=== PATIENT | female | born 1995 | race Caucasian/White ===

== ENCOUNTER 2020-12-07 18:55 | Inpatient (IN) ==
[2020-12-07] MEDS ORDERED: BENZOCAINE/MENTHOL 81 SPRAY CAN TP PRN (21:41)
[2020-12-07] MEDS ORDERED: HYDROcodone/ACETAMINOPHEN 1 EACH TABLET PO PRN (21:41)
[2020-12-07] MEDS ORDERED: IBUPROFEN 800 MG TABLET PO PRN (21:41)
[2020-12-07] MEDS ORDERED: GLYCERIN/WITCH HAZEL LEAF 40 APPL BOX TP PRN (21:42)
--- NOTE | 2020-12-08 07:07 | HP ---
Chief Complaint - Chief Complaint Date of Service: 12/08/20 Time of Service: 07:05 Chief Complaint: Delivered at [facility] History of Present Illness: 25 year old at 37w 2d who presented to [facility] complete and delivered there. Placenta delivered there as well. Delivery was uncomplicated per report and there were no lacerations. Medical History (Last Reviewed 12/08/20 @ 07:06 by Annie Rockwell MD) Anemia affecting (Acute) Onset Date: 10/07/20 History of back problems Migraine headache without aura took codeine in the past ADHD (attention deficit hyperactivity disorder) Anxiety Depression Vertigo Surgical History: Surgical History (Last Reviewed 12/08/20 @ 07:06 by Annie Rockwell MD) History of tonsillectomy History of tympanoplasty History of wisdom tooth extraction Family History: Family History (Last Reviewed 12/08/20 @ 07:06 by Annie Rockwell MD) Mother Hypertension Heart disease Grandmother Cancer Father Alcoholic Social History: (Last Reviewed 12/08/20 @ 07:06 by Annie Rockwell MD) Social History: adopted: No Marital status: Single household members: significant other current occupational status: unemployed current occupational exposures/hazards: No Highest level of school completed/degree received: 11th grade Service: No Tobacco: Smoking Status: Current every day smoker tobacco type: cigarettes Smoking cigarettes per day: 10 Years smoked: 7 Smoking pack-years: 3.50 Alcohol: alcohol intake: current details: wine occasionally, 2-3 shots a few times a week to chill out Substance Use: substance use type: former substance user details: last used middle April 2020 Dietary Habits: caffeine: No Review Of Systems (GEN) - Review of Systems Generalized/Overall Review: Present: No Symptoms Reported Misc: All systems neg except as marked Allergies/Adverse Reactions: Allergies Allergy/AdvReac Type Severity Reaction Status Date / Time No Known Allergies Allergy Verified 10/07/20 13:35 Home Medications: HOME MEDICATIONS prenat.vits,jerri,bce-zpid-gbiuh 1 tab PO DAILY #90 tab 05/26/20 [Last Taken Unknown] calcium carbonate 200 mg calcium (500 mg) chewable tablet 200 mg PO BID 10/07/20 [Last Taken Unknown] sertraline 100 mg tablet 100 mg PO DAILY #30 tab 10/07/20 [Last Taken Unknown] ferrous sulfate 325 mg (65 mg iron) tablet 325 mg PO DAILY #30 tab 10/08/20 [Last Taken Unknown] Exam - Exam Vital Signs: Vital Signs - Last Taken Temp 37.0 C 12/07/20 19:04 Pulse 103 H 12/07/20 23:18 Resp 16 12/07/20 23:18 BP 121/80 12/07/20 23:18 Pulse Ox 99 12/07/20 23:18 Constitutional: Present: Alert, Oriented x3, Cooperative, No distress ENT Exam: Present: hearing grossly normal Eye Exam: bilateral eye: normal inspection Neck: Present: normal inspection Breasts: Present: Exam deferred Respiratory: Present: lungs clear, normal breath sounds, no respiratory distress Cardiovascular/Chest: Present: regular rate, rhythm Abdomen: Present: soft, nontender, nondistended /Rectal: Present: Exam deferred Extremity: Present: non-tender, no calf tenderness Skin Exam: Present: normal color, warm/dry, no cyanosis Neurologic: Present: alert, normal mood/affect, oriented x 3 Appearance: Present: appropriate appearance, appropriate insight, neat, no me ajay impairment Eye contact: Present: cooperative, good eye contact, normal speech Thoughts: Present: normal thought pattern Diagnostic Studies: Laboratory Results Pathology Specimen Spec to path 12/08/20 06:45 Assessment/Plan - Narrative Narrative: PPD 1 s/p Doing well Depo-Provera for contraception Discharge tomorrow - Assessment/Plan (1) 37 weeks gestation of Problem: Acute (2) Vaginal delivery Problem: Acute (3) Anemia affecting Problem: Acute Qualifiers: Trimester: third trimester Qualified Code(s): O99.013 - Anemia complicating , third trimester (4) Normal Pap smear Problem: Acute (5) Smoker Problem: Acute (6) History of methamphetamine use Problem: Acute (7) History of maternal gonorrhea, currently in second trimester Problem: Acute (8) History of maternal Chlamydia infection, currently in second trimester Problem: Acute (9) Depression Problem: Acute Qualifiers: Depression Type: major depressive disorder Major depression recurrence: recurrent Active/Remission status: currently active Major depression episode severity: moderate Qualified Code(s): F33.1 - Major depressive disorder, recurrent, moderate
[2020-12-08] MEDS ORDERED: HYDROCORTISONE 30 APPL TUBE TP PRN (07:12)
[2020-12-08] MEDS ORDERED: OXYTOCIN/0.9 % SODIUM CHLORIDE 30 UNITS/500 ML BAG IV ONE (07:12)
[2020-12-08] MEDS ORDERED: SENNOSIDES 8.6 MG TABLET PO PRN (07:12)
[2020-12-08] MEDS ORDERED: BENZOCAINE/MENTHOL 81 SPRAY CAN TP PRN (07:12)
[2020-12-08] MEDS ORDERED: BISACODYL 10 MG SUPP.RECT RC PRN (07:12)
[2020-12-08] MEDS ORDERED: GLYCERIN/WITCH HAZEL LEAF 40 APPL BOX TP PRN (07:12)
[2020-12-08] MEDS ORDERED: HYDROcodone/ACETAMINOPHEN 1 EACH TABLET PO PRN ×2 (07:12)
[2020-12-08] MEDS ORDERED: IBUPROFEN 800 MG TABLET PO PRN (07:12)
[2020-12-08] MEDS ORDERED: MEDROXYPROGESTERONE ACET 150 MG/ML SYRG IM ONE ×2 (07:12→09:27)
[2020-12-08] MEDS ORDERED: diphenhydrAMINE HCL 25 MG CAPSULE PO PRN (07:12)
--- NOTE | 2020-12-08 07:14 | PN ---
Subjective - Date and Time Seen Date: 12/08/20 Time: 07:13 Subjective Narrative: Patient without complaints Objective Objective Narrative: See vital signs - Review of Systems Generalized/Overall Review: Reports: No Symptoms Reported Misc: All systems neg except as marked - Vitals Vitals: Last Vital Signs Temp 37.3 C 12/08/20 06:49 Pulse 92 12/08/20 06:49 Resp 18 12/08/20 06:49 BP 121/80 12/07/20 23:18 Pulse Ox 98 12/08/20 06:49 - Exam Constitutional: Present: Alert, Oriented x3, Cooperative, No distress ENT Exam: Present: hearing grossly normal Neck: Present: normal inspection Abdomen: Present: soft, nontender, nondistended - fundus is firm Extremity: Present: non-tender, no calf tenderness Skin Exam: Present: normal color, warm/dry, no cyanosis Neurologic: Present: alert, normal mood/affect, oriented x 3 Appearance: Present: appropriate appearance, appropriate insight, neat, no memory impairment Eye contact: Present: cooperative, good eye contact, normal speech Thoughts: Present: normal thought pattern Assessment/Plan Plan Narrative: PPD 1 s/p Doing well Discharge tomorrow - Problems/Diagnosis (1) 37 weeks gestation of Problem: Acute (2) Vaginal delivery Problem: Acute (3) Anemia affecting Problem: Acute Qualifiers: Trimester: third trimester Qualified Code(s): O99.013 - Anemia complicating , third trimester (4) Normal Pap smear Problem: Acute (5) Smoker Problem: Acute (6) History of methamphetamine use Problem: Acute (7) History of maternal gonorrhea, currently in second trimester Problem: Acute (8) History of maternal Chlamydia infection, currently in second trimester Problem: Acute (9) Depression Problem: Acute Qualifiers: Depression Type: major depressive disorder Major depression recurrence: recurrent Active/Remission status: currently active Major depression episode severity: moderate Qualified Code(s): F33.1 - Major depressive disorder, recurrent, moderate
[2020-12-08] MEDS ORDERED: DOCUSATE SODIUM 100 MG CAPSULE PO SCH ×2 (09:00)
[2020-12-08 17:47] LABS: Cocaine Ur Negative (NEGATIVE); Urine Barbiturate Negative (NEGATIVE); Urine Benzodiazepines Negative (NEGATIVE); Urine Opiates Negative (NEGATIVE); Urine PCP Negative (NEGATIVE); Urine THC Negative (NEGATIVE)
--- NOTE | 2020-12-08 19:21 | PN ---
Progess Note - Interim Date: 12/08/20 Time: 19:20 Narrative: 12/08/20 19:20 Patient requests early discharge due to baby being transferred to [place]. Pt stable for discharge
--- NOTE | 2020-12-08 19:25 | DS ---
OB Discharge Summary (1) 37 weeks gestation of Status: Acute (2) Vaginal delivery Status: Acute (3) Anemia affecting Status: Acute Qualifiers: Trimester: third trimester Qualified Code(s): O99.013 - Anemia complicating , third trimester (4) Normal Pap smear Status: Acute (5) Smoker Status: Acute (6) History of methamphetamine use Status: Acute (7) History of maternal gonorrhea, currently in second trimester Status: Acute (8) History of maternal Chlamydia infection, currently in second trimester Status: Acute (9) Depression Status: Acute Qualifiers: Depression Type: major depressive disorder Major depression recurrence: recurrent Active/Remission status: currently active Major depression episode severity: moderate Qualified Code(s): F33.1 - Major depressive disorder, recurrent, moderate Delivery Date: 12/07/20 Delivery Time: 16:39 :: 1 Para:: 1 Gestational weeks:: 37 Gestational days:: 2 Intrapartum Procedures: Spontaneous Vaginal Delivery Procedures: None /OP Complications: No Complications Discharge Diagnosis: Term -Delivered - Discharge Information Date of Discharge: 12/08/20 Hospital Course: The patient delivered at [facility]. She was transferred to [facility] for her care. course was uncomplicated. Discharge Location: Home Disposition: Home self-care Condition: Good Activity on Discharge:: Activity as tolerated, Pelvic Rest Discharge Diet: General/regular food Prescriptions (Any new or edited meds): Sertraline HCl [Zoloft] 25 mg PO DAILY #30 tab Transmission Status: Received by [facility] #[id number] Complete Home Medications List: Complete Home Medication List: Sertraline HCl [Zoloft] 25 mg PO DAILY #30 tab 12/08/20 - Plan Discharge to:: Home Comment:: Routine Discharge Instructions Follow up in office in:: Other - 4 weeks - Information Weight (Grams): 2,656 Sex: Male Score 1 min: 6 Score 5 min: 9 Other Complications: delivered at ER in [place], transferred to [facility] after stable. mother positive for amphetamines on admission. only had 2 visits. being transferred to [place].
[2020-12-08 23:58] VITALS: BP 136/80
[2020-12-09] MEDS ORDERED: SERTRALINE HCL 50 MG TABLET PO SCH (09:00)
== END 2020-12-08 21:55 | disposition home or self-care (01) | DRG 776 ==
LOC: OB 18:55
PROVIDERS: ADMIT Obstetrics & Gynecology; ATTEND Obstetrics & Gynecology